=== PATIENT | female | born 1990 | race Caucasian/White ===

== ENCOUNTER → 2017-01-27 | Outpatient (CLI) | payer OTHER | LOC: FIMAGING 08:12 | PROVIDERS: ATTEND Midwife | DX: Z34.82 Encounter for supervision of other normal pregnancy, second trimester (principal); Z3A.20 20 weeks gestation of pregnancy ==

== ENCOUNTER 2017-06-03 03:51 | Inpatient (IN) | payer OTHER ==
[2017-06-03] MEDS ORDERED: OXYTOCIN/RINGERS LACTATE 1,000 ML IV PRN (04:01)
[2017-06-03] MEDS ORDERED: TERBUTALINE SULFATE 1 MG/ML VIAL IV PRN (04:01)
[2017-06-03] MEDS ORDERED: OLIVE OIL 118 ML BTL MISC PRN (04:01)
[2017-06-03] MEDS ORDERED: LR 1,000 ML IV PRN (04:01)
[2017-06-03] MEDS ORDERED: EPSOM SALT 454 GM TP PRN (04:01)
[2017-06-03 04:37] LABS: % IMMATURE GRANULYOCYTES 0.8 % (0.0-1.1); ADD DIFF? NO; ADD MORPH? NO; ADD SCAN? NO; ATYPICAL LYMPHOCYTE FLAG 0 (0-99); FRAGMENT RBC FLAG 0 (0-99); HEMATOCRIT 35.7 % (38.0-47.0); LEFT SHIFT FLG 0 (0-99); LIPEMIA HEMOLYSIS FLAG 80 (0-99); MEAN CELL HEMOGLOBIN 33.3 pg (27.9-34.1); MEAN CELL HEMOGLOBIN CONCENTR. 33.6 g/dL (32.4-36.7); MEAN CELL VOLUME 99.2 fL (81.5-99.8); MEAN PLATELET VOLUME 10.5 fL (8.7-11.7); PLATELET CLUMPS FLAG 10 (0-99); PLATELET COUNT 200 10^3/uL (150-400); RED CELL DISTRIBUTION WIDTH 14.8 % (11.5-15.2)
[2017-06-03] MEDS ORDERED: BUPIVACAINE/EPI 0.25% 30 ML SDV ONE (04:59)
[2017-06-03] MEDS ORDERED: fentaNYL 100 MCG/2 ML INJ ONE (05:00)
[2017-06-03] MEDS ORDERED: fentanYL 4MCG/ML/BUP 0.0625% RTU 250 ML BAG EP ONE (05:01)
[2017-06-03] MEDS ORDERED: PHENYLEPHRINE HCL 100 MCG/ML SYR ONE (05:01)
[2017-06-03] MEDS ORDERED: PHENYLEPHRINE HCL 100 MCG/ML SYR IVP PRN (05:52)
[2017-06-03] MEDS ORDERED: fentaNYL 4MCG/ML/BUP 0.0625% R 250 ML EP SCH (06:00)
[2017-06-03] MEDS ORDERED: LR 500 ML IV SCH (06:00)
[2017-06-03] MEDS ORDERED: LIDOCAINE 1% 300 MG/30 ML SDV ONE (06:02)
[2017-06-03] MEDS ORDERED: OLIVE OIL 118 ML BTL ONE (06:02)
[2017-06-03] MEDS ORDERED: AMMONIA AROMATIC 1 EACH AMP IH ONE (06:02)
[2017-06-03] MEDS ORDERED: TERBUTALINE SULFATE 1 MG/ML VIAL ONE (06:02)
[2017-06-03] MEDS ORDERED: OXYTOCIN 10 UNIT/ML VIAL ONE (06:03)
[2017-06-03] MEDS ORDERED: MISOPROSTOL 200 MCG TAB ONE (06:03)
[2017-06-03] MEDS ORDERED: OXYTOCIN 20 UNIT in LR 1,000 ML IV SCH (06:30)
--- NOTE | 2017-06-03 07:27 | GHP ---
[f rep st] PREOP HISTORY AND PHYSICAL DATE OF ADMISSION: 06/03/2017 ADMITTING DIAGNOSIS: Intrauterine at 38 weeks gestation in active labor. HISTORY OF PRESENT ILLNESS: This patient is a 26-year-old, 2, para 1-0-0-1, with an unknown last menstrual period but an EDC set at 06/16/2017 by a 6 week ultrasound. Presented in active labor with strong labor contractions every 3-5 minutes, beginning early in the morning on the 8th. On adm ission to Labor and Delivery, heart tones were reactive, category 1. She was melissa every 3-4 minutes. Cervical exam originally was 5-6, 80, -2. She is currently 8 cm and intact. RISK FACTORS: Patient was transfer of care from [facility], at 33 weeks. She i s varicella nonimmune. She had a history of anemia. She also has a history of depression and a hist ory of a partial thyroidectomy on Synthroid. No other risk factors and no other complicatio ns in this . PAST OBSTETRICAL HISTORY: In September of 2012 she delivered a viable baby girl weighing 6-pounds 11-o unces, vaginal delivery. No complications, and this is her second . PAST GYNECOLOGICAL HISTORY: She had a normal menstrual triad with menarche at age 13, interval every 28 days, length 5-7 days. No history of any abnormal Paps. She uses natural family planning for co ntraception. No other gynecological history. PAST MEDICAL HISTORY: Significant for depression as a teen. She has been on medication. No history of depression. PAST SURGICAL HISTORY: She has a history of a benign thyroid tumor. At age 16 had a partial thyroid ectomy and is now on Synthroid. She had wisdom teeth extraction as well. ALLERGIES: No known drug allergies. MEDICATIONS: Include vitamins with DHA, iron and Prozac 40 mg daily. LABORATORY DATA: She is O positive. Antibody negative. RPR nonreactive. Rubella immune. Hepatiti s negative. HIV negative. TSH 1.9. Pap normal. Gonorrhea and chlamydia normal. She declined her 1 hour GTT. She performed routine blood sugars for a week and was considered to be normal. GBS was negative. SOCIAL HISTORY: She is . She lives with her and her daughter. 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 Denies tobacco, alcohol and drug use. FAMILY HISTORY: Father has chronic hypertension. Multiple grandparents with diabetes and thyroid di sease. Her paternal grandfather of suicide, significant depression. REVIEW OF SYSTEMS: Negative except for labor symptoms as above. OBJECTIVE: She is afebrile. Vital signs stable. heart tones are 140s, reactive. Moderate va riability. Category 1. She is melissa irregularly. Current cervix is 8- 9, 100%, 0 with bulgin g bag. ASSESSMENT AND PLAN: A 26-year-old, 2, para 1-0-0-1, at 38 weeks in active labor. Patient i s comfortable currently with an epidural. She will have expectant labor management for now. May be offer artificial rupture of membranes. status is reassuring. /[id number]/MODL
--- NOTE | 2017-06-03 08:11 | OBPROG ---
Labor Progress Note Assessment/Plan: Assessment: 38 1/7 in active labor status reassuring comfortable with epidural Plan: AROM if no change in cervix 06/03/17 08:07 Subjective/Intrapartum Course: 06/03/17 08:10 patient is comfortable with epidural. contractions have spaced out. no change in cervix. will arom if no change in 1 hour. status reassuring. Objective: 06/03/17 04:15 Patient ABO/Rh O POSITIVE 06/03/17 04:15 - SVE Dilation (cm): 7, 8 Effacement (%): 90 Station: -1 Membranes: Intact - Contraction Pattern Assessment Current Contraction Pattern: Irregular - FHR Assessment Del Toro FHR Pattern Variability: Moderate FHR Category: 1 - AP Antepartum Course: 06/03/17 08:12 care at [facility] until 33 5/7 weeks. had G1 at [place]. h/o depression on prozac. hx partial thyroidectomy. varicella non immune. Oxytocin Orders Assessment - Pre-Induction/Augmentation Assessment Gestational Age: 38 week(s) and 1 day(s) ICD10 Worksheet Patient Problems: Problems Problem Status Onset First stage of labor Acute (spontaneous vaginal delivery) Acute
--- NOTE | 2017-06-03 10:43 | OBPROG ---
Labor Progress Note Assessment/Plan: Assessment: 38 1/7 in active labor status reassuring comfortable with epidural Plan: AROM if no change in cervix 06/03/17 08:07 - . Subjective/Intrapartum Course: 06/03/17 08:10 patient is comfortable with epidural. contractions have spaced out. no change in cervix. will arom if no change in 1 hour. status reassuring. 06/03/17 10:42 patient comfortable with epidural. AROM - moderate amount of light meconium stained fluid. patient was 9 cm prior to arom but now back to 8 after arom. will start pitocin if no change in cervix after next exam. Objective: 06/03/17 04:15 Patient ABO/Rh O POSITIVE 06/03/17 04:15 - SVE Dilation (cm): 8, 9 Effacement (%): 100 Station: -2 Membranes: Intact Amniotic Fluid Color: Meconium Stained Dilation Complete Date: 06/03/17 Dilation Complete Time: 10:00 - Contraction Pattern Assessment Current Contraction Pattern: Irregular - FHR Assessment Del Toro FHR (bpm): 140 FHR Pattern Variability: Moderate FHR Category: 2 - Procedures Non-surgical Procedures: Amniotomy - AP Antepartum Course: 06/03/17 08:12 care at [facility] until 33 5/7 weeks. had G1 at [place]. h/o depression on prozac. hx partial thyroidectomy. varicella non immune. Oxytocin Orders Assessment - Pre-Induction/Augmentation Assessment Gestational Age: 38 week(s) and 1 day(s) ICD10 Worksheet Patient Problems: Problems Problem Status Onset First stage of labor Acute
[2017-06-03] MEDS: IBUPROFEN 600 MG TAB PO PRN ×3 (12:12→23:57)
[2017-06-03] MEDS ORDERED: HYDROCORTISONE 0.5% CREAM TP PRN (12:13)
[2017-06-03] MEDS ORDERED: ACETAMINOPHEN 325 MG TAB PO PRN (12:13)
[2017-06-03] MEDS ORDERED: HYDROCODONE/APAP 5/325 TAB PO PRN (12:13)
[2017-06-03] MEDS ORDERED: SIMETHICONE 80 MG TAB CHEW PO PRN (12:13)
--- NOTE | 2017-06-03 12:18 | OBDEL ---
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 contractions have spaced out. no change in cervix. will arom if no change in 1 hour. status reassuring. 06/03/17 10:42 patient comfortable with epidural. AROM - moderate amount of light meconium stained fluid. patient was 9 cm prior to arom but now back to 8 after arom. will start pitocin if no change in cervix after next exam. Indications for Delivery: Spontaneous Labor Vaginal Delivery - Delivery Provider Delivery Physician/CNM: Esther Rodríguez - Labor and Delivery Onset of Contractions Date: 06/03/17 Onset of Contractions Time: 00:00 Onset of Contractions Type: Spontaneous Rupture of Membranes Date: 06/03/17 Rupture of Membranes Time: 08:00 Rupture of Membranes Type: Artificial Amniotic Fluid Color: Meconium Stained Dilation Complete Date: 06/03/17 Dilation Complete Time: 10:00 Placenta Delivery Date: 06/03/17 Placenta Delivery Time: 11:53 Total Hours of Labor: 11 Non-surgical Procedures: Amniotomy Laceration: 2nd Degree Repair: 3-0 Vaginal Sponge Count Correct: Yes Vaginal Needle Count Correct: Yes Vaginal Sweep Performed: No EBL: 200 Delivery Events: None Data Del Toro Delivery Date: 06/03/17 Delivery Time: 11:49 NANDO: 06/16/17 Gestational Age: 38 week(s) and 1 day(s) Sex of : Female Score (1 Min): 8 Score (5 Min): 9 ICD10 Worksheet Patient Problems: Problems Problem Status Onset First stage of labor Acute
[2017-06-03] MEDS ORDERED: VARICELLA VIRUS VACCINE LIVE SC ONE (13:31)
[2017-06-03] MEDS: DOCUSATE SODIUM 100 MG CAP PO PRN (23:58)
[2017-06-04] MEDS: IBUPROFEN 600 MG TAB PO PRN ×2 (05:27→11:37)
[2017-06-04 08:39] VITALS: BP 105/69; PULSE 67; RESP 17; TEMP 98.5; O2SAT 95
[2017-06-04] MEDS ORDERED: PROZAC 40 MG PO SCH (09:00)
[2017-06-04] MEDS ORDERED: FLUoxetine 20 MG CAP PO SCH (09:00)
[2017-06-04] MEDS: DOCUSATE SODIUM 100 MG CAP PO PRN (09:08)
[2017-06-04] MEDS ORDERED: VARICELLA VIRUS VACCINE LIVE SC ONE ×2 (11:30→14:00)
--- NOTE | 2017-06-04 12:19 | OBGCSDC ---
General Delivery Information - General Info : 2 Para: 2 Type: Vaginal L&D Analgesia/Anesthesia Type: Epidural, Local Admission Date: 06/03/17 Labs: Patient ABO/Rh O POSITIVE 06/03/17 04:15 Hct 35.7 % (38.0-47.0) L 06/03/17 04:15 - Hospital Course Antepartum: 06/03/17 08:12 care at [facility] until 33 5/7 weeks. had G1 at [place]. h/o depression on prozac. hx partial thyroidectomy. varicella non immune. Intrapartum: 06/03/17 08:10 patient is comfortable with epidural. contractions have spaced out. no change in cervix. will arom if no change in 1 hour. status reassuring. 06/03/17 10:42 patient comfortable with epidural. AROM - moderate amount of light meconium stained fluid. patient was 9 cm prior to arom but now back to 8 after arom. will start pitocin if no change in cervix after next exam. : 06/04/17 12:15 PPD#1 and Discharge Note/Summary Subjective: pt doing well, she is without difficulty; FOB @ BS and supportive Objective: VSS, A&O x3 CV: RRR Resp: CTA-B Abd: soft, nontender, +BSx4 Uterus: firm @ U-1 perineum: healing well Lochia: min rubra Extremities: trace edema, negative corbin's sign Assessment: Routine PP care, s/p 2nd degree laceration Plan: d/c home today cont pericare routine PP care pelvic rest x 6 wks RTO in 4 and 6 weeks 06/04/17 12:17 06/04/17 12:17 06/04/17 12:19 Vaginal - Delivery Provider Delivery Physician/CNM: Esther Rodríguez - Diagnosis Labor: Spontaneous Rupture of Membranes Type: Artificial Amniotic Fluid Color: Meconium Stained Laceration: 2nd Degree Repair: 3-0 Delivery Events: None - Procedures Non-surgical Procedures: Amniotomy - Delivery Non-surgical Procedures: Amniotomy EBL: 200 Data Del Toro Delivery Date: 06/03/17 Delivery Time: 11:49 NANDO: 06/16/17 Gestational Age: 38 week(s) and 2 day(s) Sex of : Female Weight (gm): 3134 kg Score (1 Min): 8 Score (5 Min): 9 Discharge Information - Discharge Information Prescriptions: Ibuprofen [Motrin (*)] 600 mg PO Q6HRS PRN #30 tab PRN Reason: post , inflammation Condition: Good
== END 2017-06-04 12:50 | disposition home or self-care (01) | DRG 775 ==
LOC: FLD 03:51 → OBSVTOIN 03:51 → FOB 15:32
PROVIDERS: ADMIT Obstetrics & Gynecology; ATTEND Obstetrics & Gynecology
PROC: 10907ZC Drainage of Amniotic Fluid, Therapeutic from Products of Conception, Via Natural or Artificial Opening (ICD-10-PCS; principal; 2017-06-03)
PROC: 10E0XZZ Delivery of Products of Conception, External Approach (ICD-10-PCS; principal; 2017-06-03)
DX: O99.283 Endocrine, nutritional and metabolic diseases complicating pregnancy, third trimester (principal); Z37.0 Single live birth; O70.1 Second degree perineal laceration during delivery; E89.0 Postprocedural hypothyroidism; Z3A.38 38 weeks gestation of pregnancy
CPT/HCPCS: J2370; J3010; J3105

== ENCOUNTER 2017-07-08 05:36 | Day surgery (SDC) | payer OTHER ==
--- NOTE | 2017-07-06 15:44 | GHP ---
[f rep st] PREOP HISTORY AND PHYSICAL PREOPERATIVE DIAGNOSIS: Retained placenta. INDICATIONS: Patient is a 26-year-old, 2, para 2-0-0-2 who is 4 weeks after an uncomplicated spontaneous vaginal delivery. She presented for her visit and complained of continued on and off bleeding. A transvaginal ultrasound was performed which showed a 2.1 x 1.8 x 2.4 cm hyperechoic area, retained placental tissue. Management options were reviewed with the patient. Decision was made to proceed with a suction dilation and curettage. Risks and benefits have been reviewed with the patient and patient will sign consent day of surgery. PAST MEDICAL HISTORY: History of depression as a teenager. MEDICATIONS: vitamins, Synthroid. PAST SURGICAL HISTORY: History of partial thyroidectomy, wisdom tooth extraction. ALLERGIES: No known drug allergies. SOCIAL HISTORY: The patient is . She lives with her and her 2 daughters. 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 She denies tobacco, alcohol, or drug use. FAMILY MEDICAL HISTORY: Father has chronic hypertension. Multiple family members with diabetes, thyroid disease, and depression. NURSING CARE ATTENDANT HISTORY: Menarche at 13. Periods were every 28 days lasting 5-7 days. She is a 2, para 2-0-0-2. In September 2012, she had a spontaneous vaginal delivery of a 6-pound, 11-ounce female at 38 and 4/7 weeks' gestation. course was uncomplicated. Most recent and delivery were uncomplicated. The placenta was noted to have a velamentous cord insertion, but the placenta appeared to be intact after delivery. The patient delivered in 05/2017. REVIEW OF SYSTEMS: 10-point review of systems is negative with exception of above mentioned pertinent positives. She is . She has intermittent vaginal bleeding. She denies any depression. PHYSICAL EXAMINATION: VITAL SIGNS: Stable. GENERAL APPEARANCE: Alert and oriented x3. PSYCH: She has appropriate affect. MUSCULOSKELETAL: Grossly intact. NEURO: Grossly intact. NECK: Mobile and supple. HEART: Rate is regular. LUNGS: Clear to auscultation bilaterally. ABDOMEN: Soft, nondistended, nontender. EXTREMITIES: No calf tenderness or edema. PELVIC: A mobile midposition uterus which is slightly enlarged in size. No adnexal masses are noted. Thickened endometrium with retained products of conception is noted. ASSESSMENT AND PLAN: A 26-year-old, 2, para 2-0-0-2, who is 4 weeks status post a spontaneous vaginal delivery. She has retained products of conception noted. She will undergo a suction dilation and curettage for retained products of conception. Risks and benefits were reviewed with the patient, and the patient was properly consented. /[id number]/MODL MTDD
--- NOTE | 2017-07-08 07:18 | PDANEPAE ---
ANE History of Present Illness Post retained placenta. ANE Past Medical History - Cardiovascular History Hx Hypertension: No Hx Arrhythmias: No Hx Chest Pain: No Hx Coronary Artery / Peripheral Vascular Disease: No Hx CHF / Valvular Disease: No Hx Palpitations: No - Pulmonary History Hx COPD: No Hx Asthma/Reactive Airway Disease: No Hx Recent Upper Respiratory Infection: No Hx Oxygen in Use at Home: No Hx Sleep Apnea: No - Surgical History Prior Surgeries: Prior general anesthesia for thyroid nodule. ANE Review of Systems Review of systems is: negative Review of Systems: - Exercise capacity Exercise capacity: >=4 METS ANE Patient History - Allergies Allergies/Adverse Reactions: No Known Allergies Allergy (Unverified 06/03/17 04:00) - Home Medications Home Medications: Prozac 40 mg 06/03/17 [Last Taken 06/02/17 08:00] - NPO status NPO Status: no food or drink >8 hours - Anes Hx Anes Hx: post operative nausea - Smoking Hx Smoking Status: Never smoked Marijuana use: No - Alcohol Use Alcohol Use: Rarely - Family Anes Hx Family Anes Hx: neg - N/A ANE Labs/Vital Signs - Vital Signs Height: 170.18 cm Weight: 73.028 kg ANE Physical Exam - Airway Neck exam: FROM Mallampati Score: Class 1 Mouth exam: normal dental/mouth exam - Pulmonary Pulmonary: no respiratory distress - Cardiovascular Cardiovascular: regular rate and rhythym - ASA Status ASA Status: I ANE Anesthesia Plan Anesthesia Plan: GA with mask
[2017-07-08] MEDS ORDERED: MISOPROSTOL 200 MCG TAB ONE (07:50)
[2017-07-08] MEDS ORDERED: MIDAZOLAM 2 MG/2 ML VIAL ONE (07:55)
[2017-07-08] MEDS ORDERED: HEMABATE 250 MCG/1 ML AMP IM ONE (07:57)
[2017-07-08] MEDS ORDERED: METHYLERGONOVINE MAL 0.2 MG/ML INJ ONE (07:57)
[2017-07-08] MEDS ORDERED: ceFAZolin 2 GM/DEXTROSE 100 ML IV ONE (08:00)
[2017-07-08] MEDS ORDERED: PROPOFOL/EMULSION 500 MG/50 ML BOTTLE IV ONE (08:00)
[2017-07-08] MEDS ORDERED: fentaNYL 100 MCG/2 ML INJ ONE (08:01)
[2017-07-08] MEDS ORDERED: DEXAMETHASONE 4 MG/ML VIAL ONE ×2 (08:51)
[2017-07-08] MEDS ORDERED: ONDANSETRON 4 MG/2 ML VIAL ONE (08:51)
[2017-07-08] MEDS ORDERED: LIDOCAINE 2% 5 ML SDV ONE (08:51)
[2017-07-08] MEDS ORDERED: KETOROLAC 30 MG/1 ML SDV ONE (08:51)
--- NOTE | 2017-07-08 09:07 | POSTOPPROG ---
Post Op Note Date of Operation: 07/08/17 Surgeon: Maisha Baeza Anesthesiologist: Dr Blayne Kelly Anesthesia: GET(General Endotracheal) Pre-op Diagnosis: 4 weeks post , retained placenta Post-op Diagnosis: same Procedure: suction d and c Inf/Abcess present in the surg proc area at time of surgery?: No Depth: Organ Space EBL: Minimal Total fluids administered: 1000 Complications: none Drains: Constavac Specimen(s): products of conception
[2017-07-08] MEDS ORDERED: HYDROCODONE/APAP 5/325 TAB PO PRN (09:17)
[2017-07-08] MEDS ORDERED: LR 500 ML IV PRN (09:17)
[2017-07-08] MEDS ORDERED: fentaNYL 100 MCG/2 ML INJ IVP PRN (09:17)
[2017-07-08] MEDS ORDERED: ONDANSETRON 4 MG/2 ML VIAL IVP PRN (09:17)
[2017-07-08] MEDS ORDERED: NALOXONE HCL 0.4 MG/ML INJ IVP PRN (09:17)
--- NOTE | 2017-07-08 09:17 | POSTANESTH ---
Post Anesthetic Evaluation Cardiovascular Status: Normal, Stable, Similar to Pre-Op Cond Respiratory Status: Normal, Stable, Similar to Pre-op Cond. Level of Consciousness/Mental Status: Can Participate in Eval, Alert and Oriented (Awake and alert after sleepy x 5 minutes.) Pain Control: Adequate, Prn Tx Ordered Nausea/Vomiting Control: Adequate, Prn Tx Ordered Complications Possibly Related to Anesthesia: None Noted
--- NOTE | 2017-07-08 10:30 | GOP ---
[f rep st] OPERATIVE REPORT DATE OF OPERATION: 07/08/2017 SURGEON: Maisha Baeza MD ANESTHESIA: MAC sedation. ANESTHESIOLOGIST: Blayne Kelly MD PREOPERATIVE DIAGNOSIS: Four weeks with retained placenta. POSTOPERATIVE DIAGNOSIS: Four weeks with retained placenta. PROCEDURE PERFORMED: Suction dilation and curettage. FINDINGS: ESTIMATED BLOOD LOSS: For the procedure, less than 20 cc. DESCRIPTION OF PROCEDURE: Patient was taken to the operating room where she was placed under anesthe damian without difficulty. She was prepped and draped in the dorsal lithotomy position. After a WHO ti me-out was performed, an open-sided speculum was placed in the vagina, and a Tidwell tenaculum was use d to grasp the anterior lip of the cervix. The uterus sounded to 8 cm. The cervix was then progress ively dilated with Caal dilators to a #8 curved. The #8 curved suction curette was gently advanced from the cervix to the fundus. Suction was applied, and placental tissue was removed with several pa ssages of suction device. Curettage was then performed in a clockwise fashion until a gritty texture was palpated throughout the entire endometrial cavity, and there were small bits of tissue that were visible. Final pass of the suction device revealed no bleeding and no further tissue. Transvaginal ultrasound was performed. Patient had a hyperechoic appearance to her uterus, and it was difficult to see a clear endometrial stripe; however, there was no definitive tissue seen in the uterus; so fin al curette and suction revealed no further tissue and good hemostasis and uterus was not bleeding. T enaculum was removed. Patient tolerated the procedure well. Sponge, lap, needle, and instrument cou nts were correct x2. Patient went to the recovery room in good condition. INDICATIONS FOR PROCEDURE: The patient is a 26-year-old 2, para 2-0-0-2, who is 4 weeks post after an uncomplicated spontaneous vaginal delivery with a spontaneous delivery of her placent a. She presented for a routine visit complaining of bleeding that was waxing and waning c oming on and off. She had a transvaginal ultrasound performed, which revealed a 2.1 x 1.8 x 2.4 cm h yperechoic area consistent with retained placental tissue. The patient was given treatment options o f medical management versus surgical management. Patient chose to have a suction dilation and curett age for definitive treatment. She was consented for the procedure. She understood the risks and abril efits; the risks including bleeding, infection, damage to the uterus (including possible perforation) , damage to other organs if perforation were to occur, need for spontaneous expulsion and/or addition al procedures, and compromise of future fertility. She understood these risks and benefits and agree d to proceed. FLUID REPLACEMENT: 500 cc. URINE OUTPUT: About 100 cc. Patient had a red rubber drain her bladder due to difficult visualizati on with the ultrasound; it was clear. TISSUE: Products of conception. PATHOLOGY: Will be placental tissue. /[id number]/MODL
== END 2017-07-08 10:30 | disposition home or self-care (01) ==
LOC: FSGY 05:36 → FOBOP 10:30
PROVIDERS: ATTEND Obstetrics & Gynecology
PROC: 10D17ZZ Extraction of Products of Conception, Retained, Via Natural or Artificial Opening (ICD-10-PCS; principal; 2017-07-08)
DX: O73.0 Retained placenta without hemorrhage (principal)
CPT/HCPCS: J0690; J1100; J1885; J2210; J2250; J2405; J2704; J3010